=== PATIENT | female | born 1980 | race Caucasian/White ===

== ENCOUNTER 2024-07-23 10:24 | Outpatient (OUT) | payer MEDICARE, MEDICAID, SELFPAY ==
--- NOTE | 2024-07-23 | XR_ITS ---
The [address] [address] Patient Name: ELINA WARD MRN: [id number] date: 1980 Sex: F Assigned Patient Location: Current Patient Location: Accession/Order Number: [id number] Exam Date: 07/23/2024 10:25 Report Date: 07/24/2024 05:58 At the request of: FRANNIE ACOSTA Procedure: XR ankle LT min 3V PROCEDURE: XR ankle LT min 3V HISTORY: LEFT ANKLE PAIN ; posterior lump for one week; no known injury COMPARISON: None. FINDINGS: BONES:No fracture, acute abnormality, or significant arthropathy. SOFT TISSUES:Corticated calcification within or adjacent the distal Achilles tendon but separate from the calcaneus. EFFUSION:None visible. OTHER: Negative. XR/XR ankle LT min 3V IMPRESSION: 1. No acute bone abnormality or significant degenerative joint disease. 2. Calcification posterior to the calcaneus may represent a remote fracture of the degenerative enthesophytes at the Achilles tendon insertion or heterotopic bone formation from remote injury. Electronically authenticated by: SOURAV COBOS Date: 07/24/2024 05:58
== END 2024-07-23 10:25 | disposition home or self-care (01) ==
LOC: EC 10:24
PROVIDERS: Visit Provider Physician Assistant
DX: M25.572 Pain in left ankle and joints of left foot (principal)
CPT/HCPCS: 73610

== ENCOUNTER 2024-07-30 16:19 | Outpatient (RCR) | payer MEDICARE, MEDICAID, SELFPAY | END 2024-08-25 16:08 | disposition home or self-care (01) | LOC: PT 16:19 | PROVIDERS: Visit Provider Physician Assistant | DX: M76.62 Achilles tendinitis, left leg (principal) | CPT/HCPCS: 97110; 97161 ==